=== PATIENT | female | born 1975 | race American Indian/Alaskan Native ===

== ENCOUNTER 2019-08-18 23:36 | Emergency (ER) | payer MEDICAID ==
[~2019-08-18] VITALS: Ht 154.9 cm; Wt 65.0 kg
[2019-08-19] MEDS ORDERED: ketorolac trometh inj. 60 MG/2 ML VIAL IM ONE (01:30)
[2019-08-19] MEDS ORDERED: acetaminophen 325mg tablet PO ONE (01:30)
[2019-08-19] MEDS ORDERED: proCHLORperazine 10 MG/2 ml inj IM ONE (01:30)
[2019-08-19 01:59] VITALS: BP 122/79
== END 2019-08-19 02:00 | disposition home or self-care (01) ==
LOC: ER 23:37
DX: M25.532 Pain in left wrist (principal); R51 Headache; W18.39XA Other fall on same level, initial encounter; Y93.89 Activity, other specified; Y92.89 Other specified places as the place of occurrence of the external cause; Y99.8 Other external cause status
CPT/HCPCS: 73110; 96372; 99283; J0780; J1885

== ENCOUNTER 2020-01-03 10:26 | Emergency (ER) | payer MEDICAID ==
[~2020-01-03] VITALS: Ht 154.9 cm; Wt 60.9 kg
[2020-01-03] MEDS ORDERED: morphine 4 MG/ML inj SYRINge IV ONE (10:30)
[2020-01-03] MEDS ORDERED: ketorolac trometh. 30mg/ml inj. IV ONE (10:30)
[2020-01-03] MEDS ORDERED: ondansetron/PF 4mg/2ml inj IV ONE (10:30)
[2020-01-03] MEDS ORDERED: acetaminophen 325mg tablet PO ONE (10:35)
[2020-01-03] MEDS ORDERED: orphenadrine citrate 60mg/2ml inj. IM ONE (10:35)
[2020-01-03] MEDS ORDERED: normal saline 1000ml 1,000 ML IV ONE (10:40)
[2020-01-03 11:25] LABS: URINE HCG NEGATIVE (NEG)
[2020-01-03 11:31] LABS: COLOR,URINE YELLOW (Yellow); GLUCOSE, URINE NEGATIVE (Neg); KETONES,URINE TRACE mg/dl (Neg); LEUKOCYTE ESTERASE ,URINE SMALL (Neg); NITRITES, URINE NEGATIVE (Neg); OCCULT BLOOD,URINE NEGATIVE (Neg); PH,URINE 5.5 (4.8-8.0); PROTEIN,URINE NEGATIVE (Neg)
--- NOTE | 2020-01-03 11:33 | NUR ---
pt to ct
[2020-01-03 11:34] LABS: CLARITY,URINE SLIGHTLY CLOUDY (Clear); UA COLLECTION TYPE STRAIGHT CATH
[2020-01-03 11:40] LABS: WBC,URINE 30-50 /HPF (0-4)
[2020-01-03 11:41] LABS: BACTERIA,URINE FEW /HPF (Neg); MUCUS STRANDS MANY /LPF (Neg); RBC,URINE 0-2 /HPF (0-2); SQUAMOUS EPITHELIAL CELL,UR FEW /LPF (FEW); WBC CLUMPS,URINE MODERATE /HPF (NEGATIVE)
[2020-01-03] MEDS ORDERED: CefTRIAXone/D5W-Rocephin 1gm 50 ML IV ONE (11:50)
--- NOTE | 2020-01-03 12:01 | NUR ---
c-collar removed by dr. ivey.
[2020-01-03] MEDS ORDERED: HYDR-3965 PO (12:04)
[2020-01-03] MEDS ORDERED: CEPH250T PO (12:04)
[2020-01-03] MEDS ORDERED: CYCL-1 PO (12:04)
[2020-01-03] MEDS ORDERED: MELO-100 PO (12:04)
[2020-01-03] MEDS ORDERED: HYDROcodone/acetaminophen 5mg/325mg tablet PO ONE (12:05)
[2020-01-03 12:56] VITALS: BP 100/55
== END 2020-01-03 13:01 | disposition home or self-care (01) ==
LOC: ER 10:26
DX: N39.0 Urinary tract infection, site not specified (principal); M54.5 Low back pain; J45.909 Unspecified asthma, uncomplicated; F41.9 Anxiety disorder, unspecified; F32.9 Major depressive disorder, single episode, unspecified; Z86.19 Personal history of other infectious and parasitic diseases; Z79.899 Other long term (current) drug therapy
CPT/HCPCS: 72131; 81001; 81025; 87088; 96365; 96372; 96375; 99285; J0696; J1885; J2270; J2360; J2405; J7030; 99284

== ENCOUNTER 2020-04-12 11:08 | Outpatient (CLI) | payer MEDICAID ==
[~2020-04-12 11:08] MED LIST: CYCL-1 PO; MELO-100 PO
== END 2020-04-12 23:59 | disposition home or self-care (01) ==
LOC: RAD 11:08
PROVIDERS: ATTEND Family Medicine
DX: S99.911A Unspecified injury of right ankle, initial encounter (principal); M25.471 Effusion, right ankle; M79.89 Other specified soft tissue disorders; X58.XXXA Exposure to other specified factors, initial encounter; Y93.89 Activity, other specified; Y92.89 Other specified places as the place of occurrence of the external cause; Y99.8 Other external cause status
CPT/HCPCS: 73610

== ENCOUNTER 2020-04-14 07:43 | Emergency (ER) | payer MEDICAID ==
[~2020-04-14] VITALS: Ht 154.9 cm; Wt 59.1 kg
[2020-04-14 07:52] VITALS: BP 118/69
[2020-04-14] MEDS ORDERED: NAPR-56 PO (08:37)
[2020-04-14] MEDS ORDERED: naproxen 500mg tablet PO ONE (08:40)
== END 2020-04-14 09:35 | disposition home or self-care (01) ==
LOC: ER 07:44
DX: S93.491A Sprain of other ligament of right ankle, initial encounter (principal); M79.672 Pain in left foot; M79.89 Other specified soft tissue disorders; J45.909 Unspecified asthma, uncomplicated; F41.9 Anxiety disorder, unspecified; F32.9 Major depressive disorder, single episode, unspecified; Z86.19 Personal history of other infectious and parasitic diseases; Z79.899 Other long term (current) drug therapy; W50.2XXA Accidental twist by another person, initial encounter; Y93.89 Activity, other specified; Y92.89 Other specified places as the place of occurrence of the external cause; Y99.8 Other external cause status
CPT/HCPCS: 29515; 73610; 73630; 99284

== ENCOUNTER 2020-04-28 13:12 | Emergency (ER) | payer MEDICAID ==
[~2020-04-28] VITALS: Ht 154.9 cm; Wt 60.0 kg
[~2020-04-28 13:12] MED LIST changes: +NAPR-56 PO
[2020-04-28] MEDS ORDERED: morphine 4 MG/ML inj SYRINge IV ONE (13:25)
[2020-04-28] MEDS ORDERED: normal saline 1000ML IV soln IVB ONE (13:25)
[2020-04-28] MEDS ORDERED: aspirin 325mg tablet PO ONE (13:25)
[2020-04-28] MEDS ORDERED: ondansetron/PF 4mg/2ml inj IV ONE (13:25)
[2020-04-28 13:43] LABS: BASOPHILS % (AUTO) 0.3 % (0-1); EOSINOPHILS # (AUTO) 0.2 X10'3 (0-0.9); EOSINOPHILS % (AUTO) 2.2 % (0-6); HEMATOCRIT 36.9 % (35.0-45.0); HEMOGLOBIN 11.9 g/dl (12.0-16.0); LYMPHOCYTES # (AUTO) 2.5 X10'3 (1.1-4.8); LYMPHOCYTES % (AUTO) 22.7 % (21-51); MEAN CORPUSCULAR HEMOGLOBIN 26.5 PG (27.0-31.0); MEAN CORPUSCULAR HGB CONC 32.2 g/dL (33.0-36.5); MEAN CORPUSCULAR VOLUME 82.3 FL (78-98); MEAN PLATELET VOLUME 6.9 FL (7.4-10.4); MONOCYTES # (AUTO) 0.6 X10'3 (0-0.9); MONOCYTES % (AUTO) 5.5 % (2-12); NEUTROPHILS # (AUTO) 7.5 X10'3 (1.8-7.7); NEUTROPHILS % (AUTO) 69.3 % (42-75); PLATELET COUNT 568 X10'3 (140-440); RED BLOOD COUNT 4.49 X10'6 (4.20-5.60); RED CELL DISTRIBUTION WIDTH 14.8 % (11.5-14.5); WHITE BLOOD COUNT 10.8 X10'3 (4.5-11.0)
[2020-04-28 13:57] LABS: ALANINE AMINOTRANSFERASE 17 U/L (12-78); ALBUMIN/GLOBULIN RATIO 0.9 (1.1-1.5); ALKALINE PHOSPHATASE 90 IU/L (46-116); ANION GAP 12 (8-16); ASPARTATE AMINO TRANSFERASE 20 U/L (10-37); BILIRUBIN,TOTAL 0.3 MG/DL (0.1-1.0); BLOOD UREA NITROGEN 13 MG/DL (7-18); CALCIUM 8.5 MG/DL (8.5-10.1); CHLORIDE 103 MMOL/L (99-107); CREATININE 0.59 MG/DL (0.40-0.90); GLUCOSE 86 MG/DL (70-104); POTASSIUM 3.6 MMOL/L (3.5-5.1); SODIUM 138 MMOL/L (135-145); TOTAL CARBON DIOXIDE 23.3 MMOL/L (24-32); TOTAL PROTEIN 8.4 G/DL (6.4-8.2); eGFR > 90 ML/MIN
[2020-04-28 14:46] VITALS: BP 104/67
== END 2020-04-28 14:48 | disposition home or self-care (01) ==
LOC: ER 13:13
DX: R07.89 Other chest pain (principal); J45.909 Unspecified asthma, uncomplicated; F41.9 Anxiety disorder, unspecified; F32.9 Major depressive disorder, single episode, unspecified; Z86.19 Personal history of other infectious and parasitic diseases; Z72.89 Other problems related to lifestyle; Z79.899 Other long term (current) drug therapy
CPT/HCPCS: 36415; 71045; 80053; 84484; 85025; 93005; 96361; 96374; 96375; 99285; J2270; J2405; J7030

== ENCOUNTER 2020-05-23 12:46 | Emergency (ER) | payer MEDICAID ==
[~2020-05-23] VITALS: Ht 162.6 cm; Wt 60.0 kg
[~2020-05-23 12:46] MED LIST changes: -NAPR-56 PO
--- NOTE | 2020-05-23 13:35 | NUR ---
business systems technician at bedside for lab draw per MD order.
--- NOTE | 2020-05-23 13:49 | NUR ---
Patient tearful, states she lost her kids and her dad, up to bathroom, unable to provide urine sample at this time, patient informed sample is needed, safely ambulated back to bed, within sight of staff at all times, all safety measures in place.
--- NOTE | 2020-05-23 13:50 | NUR ---
Patient fell asleep, no signs of distress noted.
[2020-05-23 13:53] LABS: BASOPHILS # (AUTO) 0.1 X10'3 (0-0.2); BASOPHILS % (AUTO) 1.2 % (0-1); EOSINOPHILS # (AUTO) 0.2 X10'3 (0-0.9); EOSINOPHILS % (AUTO) 1.4 % (0-6); HEMATOCRIT 35.3 % (35.0-45.0); HEMOGLOBIN 11.5 g/dl (12.0-16.0); LYMPHOCYTES # (AUTO) 1.9 X10'3 (1.1-4.8); LYMPHOCYTES % (AUTO) 16.7 % (21-51); MEAN CORPUSCULAR HEMOGLOBIN 26.6 PG (27.0-31.0); MEAN CORPUSCULAR HGB CONC 32.5 g/dL (33.0-36.5); MEAN CORPUSCULAR VOLUME 81.9 FL (78-98); MONOCYTES # (AUTO) 0.8 X10'3 (0-0.9); MONOCYTES % (AUTO) 6.7 % (2-12); NEUTROPHILS # (AUTO) 8.6 X10'3 (1.8-7.7); PLATELET COUNT 538 X10'3 (140-440); RED BLOOD COUNT 4.31 X10'6 (4.20-5.60); RED CELL DISTRIBUTION WIDTH 14.6 % (11.5-14.5); WHITE BLOOD COUNT 11.7 X10'3 (4.5-11.0)
--- NOTE | 2020-05-23 14:03 | NUR ---
PA Olivo in to assess patient at this time.
[2020-05-23 14:09] LABS: ALANINE AMINOTRANSFERASE 23 U/L (12-78); ALBUMIN 3.7 G/DL (3.4-5.0); ALBUMIN/GLOBULIN RATIO 0.9 (1.1-1.5); ALKALINE PHOSPHATASE 83 IU/L (46-116); ANION GAP 8 (8-16); ASPARTATE AMINO TRANSFERASE 20 U/L (10-37); BILIRUBIN,TOTAL 0.6 MG/DL (0.1-1.0); BLOOD UREA NITROGEN 13 MG/DL (7-18); BUN/CREATININE RATIO 17.3 (6.6-38.0); CALCIUM 9.1 MG/DL (8.5-10.1); CHLORIDE 103 MMOL/L (99-107); CREATININE 0.75 MG/DL (0.40-0.90); GLUCOSE 99 MG/DL (70-104); POTASSIUM 3.4 MMOL/L (3.5-5.1); SODIUM 137 MMOL/L (135-145); TOTAL CARBON DIOXIDE 25.6 MMOL/L (24-32); TOTAL PROTEIN 7.9 G/DL (6.4-8.2); eGFR 84 ML/MIN
[2020-05-23 14:37] LABS: CLARITY,URINE CLOUDY (Clear); COLOR,URINE YELLOW (Yellow); GLUCOSE, URINE NEGATIVE (Neg); KETONES,URINE NEGATIVE (Neg); LEUKOCYTE ESTERASE ,URINE NEGATIVE (Neg); NITRITES, URINE NEGATIVE (Neg); OCCULT BLOOD,URINE SMALL (Neg); PROTEIN,URINE NEGATIVE (Neg); UROBILINOGEN,URINE 0.2 E.U/dL (0.2-1.0)
[2020-05-23 14:42] LABS: URINE AMPHETAMINE SCREEN POSITIVE (Neg); URINE BARBITUATE SCREEN NEGATIVE (Neg); URINE BENZODIAZEPINES SCREEN NEGATIVE (Neg); URINE CANNABINOID SCREEN NEGATIVE (Neg); URINE COCAINE SCREEN NEGATIVE (Neg); URINE METHADONE SCREEN NEGATIVE (Neg); URINE OPIATE SCREEN NEGATIVE (Neg); URINE PHENCYCLIDINE SCREEN NEGATIVE (Neg)
[2020-05-23 14:53] LABS: UA COLLECTION TYPE CLN CATCH MIDSTREAM
[2020-05-23 14:54] LABS: MUCUS STRANDS MANY /LPF (Neg); SQUAMOUS EPITHELIAL CELL,UR MANY /LPF (FEW)
[2020-05-23 14:55] LABS: BACTERIA,URINE 2+ /HPF (Neg); RBC,URINE 0-2 /HPF (0-2); WBC,URINE 0-4 /HPF (0-4)
--- NOTE | 2020-05-23 15:00 | NUR ---
pt is sleeping
--- NOTE | 2020-05-23 16:00 | NUR ---
pt is sleeping no concerns at this time
[2020-05-23 17:51] VITALS: BP 122/88
[2020-05-23 17:53] LABS: ETHANOL < 0.010 GM/DL (0.0-0.010)
[2020-05-23 18:07] LABS: URINE HCG NEGATIVE (NEG)
--- NOTE | 2020-05-23 18:22 | NUR ---
Notified by Dianne that pt has been accepted by [facility]. Pt will be picked up at approx 1900
== END 2020-05-23 19:29 ==
LOC: ER 12:47
DX: F32.9 Major depressive disorder, single episode, unspecified (principal); F25.9 Schizoaffective disorder, unspecified; J45.909 Unspecified asthma, uncomplicated; F41.9 Anxiety disorder, unspecified; Z79.899 Other long term (current) drug therapy
CPT/HCPCS: 36415; 80053; 80305; 80320; 81001; 81025; 84443; 85025; 99285

== ENCOUNTER 2020-06-03 19:41 | Emergency (ER) | payer MEDICAID ==
[~2020-06-03] VITALS: Ht 154.9 cm; Wt 64.0 kg
--- NOTE | 2020-06-03 20:08 | NUR ---
Pt currently staying at [facility] (has been there for 4 days) and prior to that has been at [facility] for 2 weeks. Had been here on mental health hold for SI and DTS.
[2020-06-03 20:39] LABS: BASOPHILS # (AUTO) 0.1 X10'3 (0-0.2); BASOPHILS % (AUTO) 1.4 % (0-1); EOSINOPHILS # (AUTO) 0.2 X10'3 (0-0.9); EOSINOPHILS % (AUTO) 2.1 % (0-6); HEMATOCRIT 34.6 % (35.0-45.0); HEMOGLOBIN 11.2 g/dl (12.0-16.0); LYMPHOCYTES # (AUTO) 2.8 X10'3 (1.1-4.8); LYMPHOCYTES % (AUTO) 27.5 % (21-51); MEAN CORPUSCULAR HEMOGLOBIN 26.8 PG (27.0-31.0); MEAN CORPUSCULAR HGB CONC 32.5 g/dL (33.0-36.5); MEAN CORPUSCULAR VOLUME 82.7 FL (78-98); MEAN PLATELET VOLUME 7.5 FL (7.4-10.4); MONOCYTES # (AUTO) 0.6 X10'3 (0-0.9); MONOCYTES % (AUTO) 6.1 % (2-12); NEUTROPHILS # (AUTO) 6.4 X10'3 (1.8-7.7); NEUTROPHILS % (AUTO) 62.9 % (42-75); PLATELET COUNT 576 X10'3 (140-440); RED BLOOD COUNT 4.19 X10'6 (4.20-5.60); RED CELL DISTRIBUTION WIDTH 14.9 % (11.5-14.5); WHITE BLOOD COUNT 10.1 X10'3 (4.5-11.0)
[2020-06-03 20:41] LABS: ALANINE AMINOTRANSFERASE 15 U/L (12-78); ALBUMIN 3.6 G/DL (3.4-5.0); ALBUMIN/GLOBULIN RATIO 0.8 (1.1-1.5); ALKALINE PHOSPHATASE 76 IU/L (46-116); ANION GAP 7 (8-16); ASPARTATE AMINO TRANSFERASE 15 U/L (10-37); BILIRUBIN,TOTAL 0.1 MG/DL (0.1-1.0); BLOOD UREA NITROGEN 14 MG/DL (7-18); BUN/CREATININE RATIO 17.3 (6.6-38.0); CALCIUM 9.2 MG/DL (8.5-10.1); CHLORIDE 102 MMOL/L (99-107); CREATININE 0.81 MG/DL (0.40-0.90); GLUCOSE 123 MG/DL (70-104); POTASSIUM 4.2 MMOL/L (3.5-5.1); SODIUM 138 MMOL/L (135-145); TOTAL CARBON DIOXIDE 29.4 MMOL/L (24-32); eGFR 77 ML/MIN
[2020-06-03] MEDS ORDERED: famotidine 10mg tablet PO STA (20:41)
[2020-06-03] MEDS ORDERED: risperiDONE 2mg tablet PO ONE (20:45)
[2020-06-03] MEDS ORDERED: sertraline 50mg tablet PO ONE (20:45)
[2020-06-03] MEDS ORDERED: mag hydrox/Alum hydrox/simeth 30ml oral suspension PO ONE (20:45)
[2020-06-03] MEDS ORDERED: dicyclomine 10 MG capsule PO ONE (20:45)
[2020-06-03] MEDS ORDERED: ketorolac tromethamine 15mg/ml inj. IM ONE (20:45)
[2020-06-03] MEDS ORDERED: PANT20TA18 PO (22:28)
[2020-06-03] MEDS ORDERED: DICY10CA88 PO (22:28)
[2020-06-03 22:47] VITALS: BP 103/65
== END 2020-06-03 22:43 | disposition home or self-care (01) ==
LOC: ER 19:42
DX: R10.12 Left upper quadrant pain (principal); R11.2 Nausea with vomiting, unspecified; R14.3 Flatulence; J45.909 Unspecified asthma, uncomplicated; F41.9 Anxiety disorder, unspecified; F32.9 Major depressive disorder, single episode, unspecified; R35.0 Frequency of micturition; F12.90 Cannabis use, unspecified, uncomplicated; F15.90 Other stimulant use, unspecified, uncomplicated; Z72.89 Other problems related to lifestyle; Z86.69 Personal history of other diseases of the nervous system and sense organs; Z90.49 Acquired absence of other specified parts of digestive tract; Z79.899 Other long term (current) drug therapy
CPT/HCPCS: 36415; 71045; 80053; 83880; 84484; 85025; 93005; 96372; 99285; J1885

== ENCOUNTER 2020-06-11 20:40 | Emergency (ER) | payer MEDICAID ==
[~2020-06-11] VITALS: Ht 154.9 cm; Wt 60.9 kg
[~2020-06-11 20:40] MED LIST changes: +DICY10CA88 PO; +PANT20TA18 PO
[2020-06-11] MEDS ORDERED: HYDROcodone/acetaminophen 5mg/325mg tablet PO ONE (22:05)
--- NOTE | 2020-06-11 22:23 | NUR ---
[facility] WAS CALLED AND WILL BE HERE TO PICK HER UP SHORTLY
[2020-06-11 22:27] VITALS: BP 107/79
== END 2020-06-11 22:00 | disposition home or self-care (01) ==
LOC: ER 20:41
DX: S09.90XA Unspecified injury of head, initial encounter (principal); J45.909 Unspecified asthma, uncomplicated; F12.90 Cannabis use, unspecified, uncomplicated; F15.90 Other stimulant use, unspecified, uncomplicated; Z98.890 Other specified postprocedural states; Z90.710 Acquired absence of both cervix and uterus; Z79.899 Other long term (current) drug therapy; W22.8XXA Striking against or struck by other objects, initial encounter; Y93.01 Activity, walking, marching and hiking; Y92.89 Other specified places as the place of occurrence of the external cause; Y99.8 Other external cause status
CPT/HCPCS: 99284

== ENCOUNTER 2020-07-07 18:47 | Emergency (ER) | payer MEDICAID ==
[~2020-07-07] VITALS: Ht 154.9 cm; Wt 65.0 kg
[2020-07-07 19:56] LABS: BASOPHILS # (AUTO) 0.1 X10'3 (0-0.2); BASOPHILS % (AUTO) 1.2 % (0-1); EOSINOPHILS # (AUTO) 0.2 X10'3 (0-0.9); EOSINOPHILS % (AUTO) 2.9 % (0-6); HEMATOCRIT 32.8 % (35.0-45.0); HEMOGLOBIN 10.6 g/dl (12.0-16.0); LYMPHOCYTES # (AUTO) 2.6 X10'3 (1.1-4.8); LYMPHOCYTES % (AUTO) 29.3 % (21-51); MEAN CORPUSCULAR HEMOGLOBIN 26.5 PG (27.0-31.0); MEAN CORPUSCULAR HGB CONC 32.4 g/dL (33.0-36.5); MEAN CORPUSCULAR VOLUME 81.8 FL (78-98); MEAN PLATELET VOLUME 7.2 FL (7.4-10.4); MONOCYTES # (AUTO) 0.6 X10'3 (0-0.9); MONOCYTES % (AUTO) 6.5 % (2-12); NEUTROPHILS # (AUTO) 5.3 X10'3 (1.8-7.7); NEUTROPHILS % (AUTO) 60.1 % (42-75); PLATELET COUNT 407 X10'3 (140-440); RED CELL DISTRIBUTION WIDTH 16.3 % (11.5-14.5); WHITE BLOOD COUNT 8.7 X10'3 (4.5-11.0)
--- NOTE | 2020-07-07 19:57 | NUR ---
additional reports dropping items and poor reflexes with Dr Casas. report dizziness and headaches daily since on medications.
[2020-07-07 20:08] LABS: ALANINE AMINOTRANSFERASE 27 U/L (12-78); ALBUMIN/GLOBULIN RATIO 1.1 (1.1-1.5); ALKALINE PHOSPHATASE 79 IU/L (46-116); ANION GAP 9 (8-16); ASPARTATE AMINO TRANSFERASE 16 U/L (10-37); BILIRUBIN,TOTAL 0.2 MG/DL (0.1-1.0); BLOOD UREA NITROGEN 14 MG/DL (7-18); BUN/CREATININE RATIO 16.9 (6.6-38.0); CALCIUM 9.1 MG/DL (8.5-10.1); CHLORIDE 105 MMOL/L (99-107); CREATININE 0.83 MG/DL (0.40-0.90); GLUCOSE 103 MG/DL (70-104); POTASSIUM 4.1 MMOL/L (3.5-5.1); SODIUM 139 MMOL/L (135-145); TOTAL CARBON DIOXIDE 25.4 MMOL/L (24-32); TOTAL PROTEIN 7.8 G/DL (6.4-8.2); eGFR 75 ML/MIN
--- NOTE | 2020-07-07 20:48 | NUR ---
spoke to [facility] to receive patient back ETA curing pickling packer will be here in 30 minutes
[2020-07-07 21:04] VITALS: BP 121/68
== END 2020-07-07 21:05 | disposition home or self-care (01) ==
LOC: ER 18:48
DX: R11.10 Vomiting, unspecified (principal); R51.9 Headache, unspecified; R42 Dizziness and giddiness; Z00.01 Encounter for general adult medical examination with abnormal findings; Z79.899 Other long term (current) drug therapy; D64.9 Anemia, unspecified; F41.9 Anxiety disorder, unspecified
CPT/HCPCS: 36415; 71045; 80053; 83880; 84484; 85025; 93005; 99285

== ENCOUNTER 2020-09-29 17:46 | Emergency (ER) | payer MEDICAID ==
[~2020-09-29] VITALS: Ht 157.5 cm; Wt 75.0 kg
== END 2020-09-29 19:06 | disposition home or self-care (01) ==
LOC: ER 17:47
DX: R06.02 Shortness of breath (principal); Z20.822 Contact with and (suspected) exposure to COVID-19; R42 Dizziness and giddiness; J45.909 Unspecified asthma, uncomplicated; Z72.89 Other problems related to lifestyle; Z86.19 Personal history of other infectious and parasitic diseases; Z90.49 Acquired absence of other specified parts of digestive tract; Z79.899 Other long term (current) drug therapy
CPT/HCPCS: 36415; 87635; 99283

== ENCOUNTER 2020-10-03 09:47 | Emergency (ER) | payer MEDICAID ==
[~2020-10-03] VITALS: Ht 154.9 cm; Wt 63.6 kg
[2020-10-03] MEDS ORDERED: BENZ-16 PO (10:06)
[2020-10-03] MEDS ORDERED: SERT50TA PO (10:06)
[2020-10-03] MEDS ORDERED: ALBU6.7H9 INH (10:06)
== END 2020-10-03 10:18 | disposition home or self-care (01) ==
LOC: ER 09:48
DX: J45.909 Unspecified asthma, uncomplicated (principal); Z76.0 Encounter for issue of repeat prescription; Z86.19 Personal history of other infectious and parasitic diseases; Z90.49 Acquired absence of other specified parts of digestive tract; Z72.89 Other problems related to lifestyle; Z79.899 Other long term (current) drug therapy
CPT/HCPCS: 36415; 99281; 99283

== ENCOUNTER 2020-10-15 23:59 | Emergency (ER) | payer MEDICAID ==
[~2020-10-15] VITALS: Ht 154.9 cm; Wt 56.0 kg
[~2020-10-15 23:59] MED LIST changes: +ALBU6.7H9 INH; +BENZ-16 PO; +SERT50TA PO
[2020-10-16 00:45] LABS: RED BLOOD COUNT 4.26 X10'6 (4.20-5.60)
[2020-10-16 00:47] LABS: BASOPHILS # (AUTO) 0.1 X10'3 (0-0.2); EOSINOPHILS # (AUTO) 0.1 X10'3 (0-0.9); HEMATOCRIT 35.8 % (35.0-45.0); LYMPHOCYTES # (AUTO) 1.5 X10'3 (1.1-4.8); LYMPHOCYTES % (AUTO) 11.4 % (21-51); MEAN CORPUSCULAR HEMOGLOBIN 28.1 PG (27.0-31.0); MEAN CORPUSCULAR HGB CONC 33.4 g/dL (33.0-36.5); MEAN CORPUSCULAR VOLUME 84.1 FL (78-98); MEAN PLATELET VOLUME 7.3 FL (7.4-10.4); MONOCYTES # (AUTO) 0.9 X10'3 (0-0.9); NEUTROPHILS # (AUTO) 10.5 X10'3 (1.8-7.7); NEUTROPHILS % (AUTO) 79.6 % (42-75); PLATELET COUNT 449 X10'3 (140-440); RED CELL DISTRIBUTION WIDTH 13.2 % (11.5-14.5); WHITE BLOOD COUNT 13.2 X10'3 (4.5-11.0)
[2020-10-16] MEDS ORDERED: LIDOcaine 1% w/epiNEPHrine 1:200,000 30ml vial SQ ONE (00:50)
[2020-10-16 00:54] LABS: ALANINE AMINOTRANSFERASE 20 U/L (12-78); ALBUMIN/GLOBULIN RATIO 0.9 (1.1-1.5); ALKALINE PHOSPHATASE 87 IU/L (46-116); ANION GAP 11 (8-16); ASPARTATE AMINO TRANSFERASE 19 U/L (10-37); BILIRUBIN,TOTAL 0.6 MG/DL (0.1-1.0); CHLORIDE 103 MMOL/L (99-107); CREATININE 0.75 MG/DL (0.40-0.90); GLUCOSE 102 MG/DL (70-104); POTASSIUM 3.5 MMOL/L (3.5-5.1); SODIUM 139 MMOL/L (135-145); TOTAL CARBON DIOXIDE 24.8 MMOL/L (24-32); TOTAL PROTEIN 8.6 G/DL (6.4-8.2); eGFR 84 ML/MIN
[2020-10-16 00:57] LABS: BLOOD UREA NITROGEN 19 MG/DL (7-18); BUN/CREATININE RATIO 25.3 (6.6-38.0)
[2020-10-16 01:03] LABS: ETHANOL < 0.010 GM/DL (0.0-0.010)
[2020-10-16] MEDS ORDERED: LIDOcaine 1% W/epiNEPHrine 1:100,000 20ml vial SQ ONE (01:05)
[2020-10-16 01:23] LABS: URINE HCG NEGATIVE (NEG)
[2020-10-16 01:36] LABS: URINE AMPHETAMINE SCREEN POSITIVE (Neg); URINE BARBITUATE SCREEN NEGATIVE (Neg); URINE BENZODIAZEPINES SCREEN NEGATIVE (Neg); URINE CANNABINOID SCREEN NEGATIVE (Neg); URINE COCAINE SCREEN NEGATIVE (Neg); URINE METHADONE SCREEN NEGATIVE (Neg); URINE OPIATE SCREEN NEGATIVE (Neg); URINE PHENCYCLIDINE SCREEN NEGATIVE (Neg)
--- NOTE | 2020-10-16 03:24 | NUR ---
The patient was transferred to bed 25 in the ER. She was changed into green scrubs. Her property was inventoried.
--- NOTE | 2020-10-16 03:24 | NUR ---
Packet sent to [facility]
--- NOTE | 2020-10-16 03:42 | NUR ---
The aptient is resting on her bed.
[2020-10-16 05:45] VITALS: BP 97/63
--- NOTE | 2020-10-16 06:30 | NUR ---
Pt is lying in bed, appears to be sleeping.
--- NOTE | 2020-10-16 07:25 | NUR ---
FAXED PACKET [facility]
[2020-10-16] MEDS ORDERED: PANT20TA18 PO (07:26)
[2020-10-16] MEDS ORDERED: ALBU6.7H9 INH (07:27)
[2020-10-16] MEDS ORDERED: SERT-153 PO (07:27)
[2020-10-16] MEDS ORDERED: sertraline 50mg tablet PO SCH (08:04)
[2020-10-16] MEDS ORDERED: pantoprazole 40mg Tablet.DR PO SCH (08:04)
--- NOTE | 2020-10-16 08:30 | NUR ---
Pt ate breakfast, she is currently denying SI and states she just wants to go home.
--- NOTE | 2020-10-16 10:29 | NUR ---
Pt is being evaluated by [facility].
--- NOTE | 2020-10-16 10:49 | NUR ---
Pt is not being placed on a hold. She will be sent via cab to [facility] to meet with someone over there.
--- NOTE | 2020-10-16 11:31 | NUR ---
Pt is being discharged, a cab has been called to transport her to [facility].
--- NOTE | 2020-10-16 12:42 | NUR ---
Pt discharged, cab arrived and PCT walked pt out to it.
[2020-10-16] MEDS ORDERED: albuterol 2.5 MG/3 ML nebule NEB SCH (14:00)
== END 2020-10-16 12:42 | disposition home or self-care (01) ==
LOC: ER 23:59
DX: S51.811A Laceration without foreign body of right forearm, initial encounter (principal); Z20.822 Contact with and (suspected) exposure to COVID-19; F32.9 Major depressive disorder, single episode, unspecified; F15.10 Other stimulant abuse, uncomplicated; J45.909 Unspecified asthma, uncomplicated; F41.9 Anxiety disorder, unspecified; Z86.19 Personal history of other infectious and parasitic diseases; Z86.2 Personal history of diseases of the blood and blood-forming organs and certain disorders involving the immune mechanism; Z90.49 Acquired absence of other specified parts of digestive tract; Z72.89 Other problems related to lifestyle; Z79.899 Other long term (current) drug therapy; X58.XXXA Exposure to other specified factors, initial encounter; Y93.89 Activity, other specified; Y92.89 Other specified places as the place of occurrence of the external cause; Y99.8 Other external cause status
CPT/HCPCS: 12002; 36415; 80053; 80305; 80320; 81025; 84443; 85025; 87426; 99284

== ENCOUNTER 2020-10-26 14:02 | Emergency (ER) | payer MEDICAID ==
[~2020-10-26] VITALS: Ht 154.9 cm; Wt 59.1 kg
[~2020-10-26 14:02] MED LIST changes: -BENZ-16 PO; -CYCL-1 PO; -DICY10CA88 PO; -MELO-100 PO; +SERT-153 PO; -SERT50TA PO
[2020-10-26] MEDS ORDERED: PRED20TA PO (14:30)
[2020-10-26] MEDS ORDERED: DOXY100C43 PO (14:30)
== END 2020-10-26 14:49 | disposition home or self-care (01) ==
LOC: ER 14:02
DX: J02.9 Acute pharyngitis, unspecified (principal); Z20.822 Contact with and (suspected) exposure to COVID-19; R05 Cough; R51.9 Headache, unspecified; R50.9 Fever, unspecified; J45.909 Unspecified asthma, uncomplicated; F41.9 Anxiety disorder, unspecified; F32.9 Major depressive disorder, single episode, unspecified; F15.90 Other stimulant use, unspecified, uncomplicated; Z59.0 Homelessness; Z86.19 Personal history of other infectious and parasitic diseases; Z86.2 Personal history of diseases of the blood and blood-forming organs and certain disorders involving the immune mechanism; Z90.49 Acquired absence of other specified parts of digestive tract; Z72.89 Other problems related to lifestyle; Z79.2 Long term (current) use of antibiotics; Z79.899 Other long term (current) drug therapy
CPT/HCPCS: 36415; 99283; U0003